=== PATIENT | female | born 1975 | race Caucasian/White ===

== ENCOUNTER 2021-04-16 23:43 | Emergency (ER) | payer OTHER ==
[~2021-04-16] VITALS: Ht 160 cm; Wt 54.4 kg
[~2021-04-16 23:43] MED LIST: AMIT100T2 PO; ELET20TA PO; FLUT1DIS IH; GABA-331 PO; GABA600T PO; LEVA15HF5; NAPR-1172 PO; OXYIR5 PO
[2021-04-16 23:48] VITALS: BP_SYST 142
[2021-04-17 00:07] VITALS: BP_SYST 142
== END 2021-04-17 00:07 | disposition left against medical advice (07) ==
LOC: SED 23:43
DX: T78.40XA Allergy, unspecified, initial encounter (principal); Z53.21 Procedure and treatment not carried out due to patient leaving prior to being seen by health care provider